=== PATIENT | male | born 1975 | race Caucasian/White ===

== ENCOUNTER 2022-02-06 08:06 | Emergency (ER) | payer BC ==
[2022-02-06] MEDS ORDERED: SIMVASTATIN10 M1 (08:26)
[2022-02-06 08:32] LABS: BASO # 0.03 K/mm3 (0.02-0.10); EOS # 0.13 K/mm3 (0.04-0.40); EOS % 1.5 % (0.0-4.0); HEMATOCRIT 43.3 % (42.0-52.0); HEMOGLOBIN 14.4 g/dL (13.5-18.0); LYMPH# 4.28 K/mm3 (1.50-4.00); MEAN CELL VOLUME 94 fl (78-100); MEAN CORPUSCULAR HEMOGLOBIN 31 pg (27-31); MEAN CORPUSCULAR HGB CONC 33 g/dL (33-37); MEAN PLATELET VOLUME 9.4 fl (7.4-10.4); MONO # 0.77 K/mm3 (0.20-0.80); NEU # 3.27 K/mm3 (1.40-6.50); PLATELET COUNT 290 K/mm3 (130-400); RED BLOOD COUNT 4.59 M/mm3 (4.20-5.60); RED CELL DISTRIBUTION WIDTH 12.1 % (11.5-14.5); WHITE BLOOD COUNT 8.5 K/mm3 (4.8-10.8)
[2022-02-06 08:44] LABS: ALBUMIN 4.3 g/dL (3.5-5.0)
[2022-02-06 08:46] LABS: CALCIUM 9.3 mg/dL (8.3-10.5)
[2022-02-06 08:47] LABS: TOTAL PROTEIN 7.1 g/dL (6.4-8.3)
[2022-02-06 08:49] LABS: TOTAL BILIRUBIN 0.3 mg/dL (0.2-1.2)
[2022-02-06 08:50] LABS: PARTIAL THROMBOPLASTIN TIME 22.7 SECONDS (21.0-32.0); PROTHROMBIN TIME 10.1 SECONDS (9.0-12.0)
[2022-02-06 08:59] LABS: TROPONIN-I 0.046 ng/mL (<0.030)
[2022-02-06 11:30] VITALS: BP 131/78
== END 2022-02-06 11:50 | disposition short-term general hospital (02) ==
LOC: ED 08:06
PROVIDERS: Nurse Practitioner
DX: I21.4 Non-ST elevation (NSTEMI) myocardial infarction (principal); Z28.310 Unvaccinated for COVID-19; Z20.822 Contact with and (suspected) exposure to COVID-19
CPT/HCPCS: J1644